=== PATIENT | female | born 1995 | race Caucasian/White ===

== ENCOUNTER → 2018-09-17 | Outpatient (CLI) | payer BC ==
--- NOTE | 2018-09-17 14:37 | WOMENS IMAGING REPORT ---
EXAM DESCRIPTION: U/S BREAST UNILAT LIMITED COMPLETED DATE/TIME: 09/17/2018 11:00 am REASON FOR STUDY: RT BREAST LUMP N63.14 N63.14 UNSPECIFIED LUMP IN THE RIGHT BREAST, LOWER INNER QU A COMPARISON: None. TECHNIQUE: Real-time and static grayscale imaging performed of the right breast targeted to the area of clinical concern. Selected color Doppler images recorded. LIMITATIONS: None. FINDINGS: MASS: No mass identified. Normal glandular tissue. OTHER: In the right breast medial 3 to 4 o'clock position, in the area of palpable abnormality, there is a well-circumscribed anechoic cyst with septation, 1.3 by 1.4 x 0.7 cm in size. This is a benign finding. Clinical follow-up recommended IMPRESSION: Palpable abnormality medial lateral breast correlates with a breast parenchymal cyst wit h septation. Clinical follow-up recommended. BIRAD: 2 Benign findings. RECOMMENDATION: RECOMMENDED FOLLOW-UP: Follow-up as clinically indicated. COMMENT: The [employer] ([employer]) has developed recommendations for screening MRI of the breasts in certain patient populations, to be used in conjunction with mammography. Breast MRI s urveillance may be appropriate for women with more than 20% lifetime risk of developing breast cancer as determined by genetic testing, significant family history of the disease, or history of mantle r adiation for Hodgkins Disease. [employer] Practice Guidelines 2008. TECHNICAL DOCUMENTATION: JOB ID: [id number] 1951 [employer]- All Rights Reserved Reading location - IP/workstation name: [email or web address]
== END ==
LOC: WI 10:27
PROVIDERS: ATTEND Internal Medicine Geriatric Medicine
DX: N63.14 Unspecified lump in the right breast, lower inner quadrant (principal)
CPT/HCPCS: 76642

== ENCOUNTER 2020-07-11 08:06 | Inpatient (IN) | payer BC, MEDICAID ==
[2020-07-11 09:25] LABS: APPEARANCE,URINE CLEAR; BILIRUBIN,URINE NEGATIVE (NEGATIVE); COLOR,URINE YELLOW; GLUCOSE, URINE NEGATIVE (NEGATIVE); KETONES,URINE NEGATIVE (NEGATIVE); LEUKOCYTE ESTERASE,URINE TRACE (NEGATIVE); NITRITE,URINE NEGATIVE (NEGATIVE); PROTEIN,URINE 30 mg/dL (NEGATIVE); URINE SPECIFIC GRAVITY 1.011; UROBILINOGEN,URINE NEGATIVE mg/dL (<2.0)
[2020-07-11 09:45] LABS: URINE AMPHETAMINES SCREEN NEGATIVE; URINE BARBITURATES SCREEN NEGATIVE; URINE BENZODIAZEPINES SCREEN NEGATIVE; URINE COCAINE SCREEN NEGATIVE; URINE MARIJUANA (THC) SCREEN NEGATIVE; URINE METHADONE SCREEN NEGATIVE; URINE PHENCYCLIDINE SCREEN NEGATIVE
[2020-07-11] MEDS ORDERED: RINGERS SOLUTION,LACTATED 1,000 ML IV PRN (12:04)
[2020-07-11] MEDS ORDERED: RINGERS SOLUTION,LACTATED 500 ML IV ONE (12:04)
--- NOTE | 2020-07-11 12:19 | Admission Physical ---
Datetime Report Generated by CPN: 07/11/2020 12:18 CURRENT ADMISSION Chief Complaint: Uterine Contractions Admit Impression : Term, Intrauterine ; Active Labor Admit Plan: Admit to Unit ALLERGIES Medication Allergies: Yes Medication Allergies: promethazine HCl/SV/n/v (08/04/2014); meperidine HCl/SV/n/v (08/04/2014); hydromorphone HCl/SV/n/v (07/11/2020); morphine/SV/n/v (08/04/2014); latex/MO/rash (08/04/2014) Latex: Latex Allergies OBSTETRICAL HISTORY EDC: 07/09/2020 00:00 : 1 Para: 0 Term: 0 : 0 SAB: 0 IAB: 0 Ectopic: 0 Livin Cesareans: 0 VBACs: 0 Multiple Births: 0 Gestational Diabetes: No Rh Sensitization: No Incompetent Cervix: No JOHNSON: No Infertility: No ART Treatment: No Uterine Anomaly: No IUGR: No Hx Previous C/S: No Macrosomia: No Hx Loss/Stillborn: No PIH: No Hx : No Placenta Previa/Abruption: No Depression/PP Depression: No PTL/PROM: No Post Hemorrhage: No Current Procedures: Ultrasound Obstetrical History Comments: G1-current SEE RECORDS Alcohol: No Marijuana : No Cocaine: No Other Illicit Drugs: No Cigarettes: Current Some Day Smoker. [id number] Cigarette Frequency: 5 - 10 per day MEDICAL HISTORY Diabetes: No Blood Transfusion: No Pulmonary Disease (Asthma, TB): No Breast Disease: No Hypertension: No Grades 9 12 Tutor Surgery: No Heart Disease: No Hosp/Surgery: Yes Autoimmune Disorder: No Anesthetic Complications: No Kidney Disease: No Abnormal Pap Smear: No Neuro/Epilepsy: No Psychiatric Disorders: No Other Medical Diseases: No Hepatitis/Liver Disease: No Significant Family History: No Varicosities/Phlebitis: No Trauma/Violence : No Thyroid Dysfunction: No Medical History Comments: Appendectomy/Hernia repair 2008 INFECTIOUS HISTORY Gonorrhea: No Chlamydia: No Syphilis: No HIV/AIDS Exposure: No PHYSICAL EXAM General: Normal HEENT: Normal Neurologic: Normal Thyroid: Normal Heart: Normal Lungs: Normal Breast: Normal Back: Normal Abdomen: Normal Genitourinary Exam: Normal Extremities: Normal DTRs: Normal Pelvic Type: Adequate Vital Signs: Reviewed MEMBRANES Membranes: Intact FETUS A EGA: 40.2 Monitoring: External US FHR- Baseline: 140 Variability: Moderate 6-25bpm Accelerations: 15X15 Decelerations: None FHR Category: Category I Admit Comment: at 40.2 wks, change her cervix after walking for a few hours. VE 4/90/0 per the RN exam. Pt desires an epidural. GBS negative. Pt is Rh negative. Plan to admit, then will AROM after pt gets an epidural. EFW 8 lbs. Attending MD is Dr Street PLANS FOR LABOR AND DELIVERY Labor and Delivery: Plan Pain Management: Epidural Feeding Preference: Breast Benefit of Breast Feed Discussed: Yes Circumcision: N/A INFORMED CONSENT Assignment: Irene Street MD Signature: with User ID: Kenya : with User ID: Kenya
[2020-07-11 12:42] LABS: HEMATOCRIT 33.1 % (36.0-47.0); HEMOGLOBIN 11.6 g/dL (12.0-15.5); MEAN CORPUSCULAR HEMOGLOBIN 32.2 pg (27.0-33.4); MEAN CORPUSCULAR HGB CONC 35.1 g/dL (32.0-36.0); MEAN CORPUSCULAR VOLUME 92 fl (80-97); PLATELET COUNT 158 10^3/uL (150-450); RED BLOOD COUNT 3.61 10^6/uL (3.72-5.28); WHITE BLOOD COUNT 16.4 10^3/uL (4.0-10.5)
[2020-07-11] MEDS ORDERED: OXYTOCIN 10 UNIT/ML VIAL ONE (12:45)
[2020-07-11] MEDS ORDERED: FENTANYL/BUPIVACAINE/NS/PF 300 MCG/150 ML RTUINJ EPI ONE (12:46)
[2020-07-11] MEDS ORDERED: LIDOCAINE 1% INJ-PF (10 MG/ML) 30 ML SDV ONE (12:46)
[2020-07-11] MEDS ORDERED: EPHEDRINE SULFATE INJ 50 MG/1 ML AMPULE ONE (12:46)
[2020-07-11] MEDS ORDERED: MISOPROSTOL 0.2 MG TABLET ONE (12:46)
[2020-07-11] MEDS ORDERED: OXYTOCIN/0.9 % SODIUM CHLORIDE 30 UNIT/500 ML RTUINJ ONE (12:46)
[2020-07-11] MEDS ORDERED: ROPIVACAINE HCL 0.2% INJ/PF (2 MG/ML) 20 ML SDV ONE (12:47)
[2020-07-11 13:27] LABS: ABSOLUTE LYMPHOCYTES# (MANUAL) 0.8 10^3/uL (0.5-4.7); BASOPHILS % (MANUAL) 0 % (0-2); EOSINOPHILS % (MANUAL) 0 % (0-6); LYMPHOCYTES % (MANUAL) 3 % (13-45); MONOCYTES % (MANUAL) 0 % (3-13); PLATELET COMMENT ADEQUATE; RBC MORPHOLOGY COMMENT NORMO-CYTIC/CHROMIC; SEGMENTED NEUTROPHILS % (MAN) 95 % (42-78); TOTAL CELLS COUNTED 100
--- NOTE | 2020-07-11 15:49 | L&D Progress Notes ---
PROGRESS NOTES Datetime Report Generated by CPN: 07/11/2020 15:49 PROGRESS NOTE Impression: Normal Progression of Labor Procedures: Artificial ROM; Sterile Vag Exam Plan: Continue Present Management; Anticipate Vaginal Delivery Vital Signs : Reviewed Comment: Epidural in place, pt feeling pressure, VE rim/100/0. AROM w/ clear fluid noted. Position changes encouraged. Anticipate VAGINAL EXAM Dilatation: rim Effacement: 100 Station: 0 Contractions: q1-2 LAST VAGINAL EXAM-NURSING Nursing Exam Dilitation: 6-7 Nursing Exam Effacement: 90 Nursing Exam Station: 0 MEMBRANES Membranes: Ruptured Amniotic Fluid Color: Clear FETUS A FHR - Baseline: 140 Monitoring: External US Variability: Moderate 6-25bpm Accelerations: 15X15 Decelerations: None SIGNATURE SIGNATURE: [id number];[id number] Assignment: Irene Srteet MD Signature: with User ID: Kenya : with User ID: Kenya
[2020-07-11] MEDS ORDERED: ACETAMINOPHEN WITH CODEINE #3 TABLET PO PRN ×2 (19:40)
[2020-07-11] MEDS ORDERED: ACETAMINOPHEN 325 MG TABLET PO PRN (19:40)
[2020-07-11] MEDS ORDERED: FAMOTIDINE 20 MG TABLET PO PRN (19:40)
[2020-07-11] MEDS ORDERED: ACETAMINOPHEN 650 MG SUPP.RECT PR PRN (19:40)
[2020-07-11] MEDS ORDERED: MAGNESIUM HYDROXIDE SUSP 30 ML UDCUP PO PRN (19:40)
[2020-07-11] MEDS ORDERED: VARICELLA VACC/PF (1350 UNIT/0.5 ML) 0.5 ML VIAL SUBCUT PRN (19:40)
[2020-07-11] MEDS ORDERED: DIPHENHYDRAMINE HCL 25 MG CAPSULE PO PRN (19:40)
[2020-07-11] MEDS ORDERED: MAG HYDROX/AL HYDROX/SIMETH SUSP 30 ML UDCUP PO PRN (19:40)
[2020-07-11] MEDS ORDERED: GLYCERIN/WITCH HAZEL LEAF 1 EACH MED..WIPE TP PRN (19:40)
[2020-07-11] MEDS ORDERED: ZOLPIDEM TARTRATE 5 MG TABLET PO PRN (19:40)
[2020-07-11] MEDS ORDERED: PSEUDOEPHEDRINE HCL 30 MG TABLET PO PRN (19:40)
[2020-07-11] MEDS ORDERED: OXYTOCIN/0.9 % SODIUM CHLORIDE 30 UNIT/500 ML RTUINJ IV PRN (19:40)
[2020-07-11] MEDS ORDERED: MEASLES,MUMPS&RUBELLA VACC/PF 0.5 ML VIAL SUBCUT PRN (19:40)
[2020-07-11] MEDS ORDERED: BENZOCAINE/MENTHOL AEROSOL SPRAY 56 ML TOP PRN (19:40)
[2020-07-11] MEDS ORDERED: DIPH/PERTUSS(ACELL)/TETANUS VAC/PF 0.5 ML SYR (>=10YO) IM PRN (19:40)
[2020-07-11] MEDS ORDERED: DIBUCAINE 1% OINTMENT 28 GM TP PRN (19:40)
[2020-07-11] MEDS ORDERED: ACETAMINOPHEN WITH CODEINE #3 TABLET ONE (19:42)
--- NOTE | 2020-07-11 21:10 | Delivery Summary ---
Del Sum A-C Datetime Report Generated by CPN: 07/11/2020 21:10 DELIVERY PERSONNEL DELIVERY PERSONNEL: [id number] Delivery Doctor:: Irene Street MD Labor and Delivery Nurse:: Nallely Fagan RNoverhead cleaner Nurse:: Sabine Avelar RN Roll Carrier/TRIM MECHANIC: Dilia Green, ST MATERNAL INFORMATION Delivery Anesthesia: Epidural Medications After Delivery: Pitocin 30 Units in 500ml NS/D5W Estimated Blood Loss (ml): 300 Delivery QBL: 300 Maternal Complications: None LABOR SUMMARY EDC: 07/09/2020 00:00 No. Babies in Womb: 1 Attempted: No Labor Anesthesia: Epidural LABOR INFORMATION Reason for Induction: Not Applicable Onset of Labor: 07/11/2020 13:59 Complete Dilatation: 07/11/2020 16:38 Oxytocin: N/A Group B Beta Strep: Negative Antibiotics # of Doses: 0 Name of Antibiotic Given: n/a Steroids Given: None Reason Steroids Not Administered: Not Applicable MEMBRANES Membranes Rupture Method: Artificial Rupture of Membranes: 07/11/2020 15:53 Length of Rupture (hr): 3.50 Amniotic Fluid Color: Clear Amniotic Fluid Amount: Small Amniotic Fluid Odor: Normal STAGES OF LABOR Stage 1 hr: 2 Stage 1 min: 39 Stage 2 hr: 2 Stage 2 min: 45 Stage 3 hr: 0 Stage 3 min: 4 Total Time in Labor hr: 5 Total Time in Labor min: 28 VAGINAL DELIVERY Episiotomy: None Laceration #1: Perineal Laceration Extension #1: Second Degree Laceration Repair: Yes Laceration Repair Note: 3-0 vicryl repair. normal fashion Sponge Count Correct: Yes Sharps Count Correct: Yes CSECTION DELIVERY Primary Indication: N/A Secondary Indication: N/A CSection Incidence: N/A Labor: N/A Elective: N/A CSection Incision: N/A BABY A INFORMATION Delivery Date/Time: 07/11/2020 19:23 Method of Delivery: Vaginal Nurse Controlled Delivery: No Born in Route : No : N/A Forceps: N/A Vacuum Extraction: N/A Shoulder Dystocia : Yes SHOULDER DYSTOCIA BABY A Delivery of Head: 07/11/2020 19:23 Time Head to Delivery : 0.0 1st Intervention to Resolve: McRobert's Maneuver 2nd Intervention to Resolve: Suprapubic Pressure PRESENTATION/POSITION BABY A Presentation: Cephalic Cephalic Presentation: Vertex Vertex Position: Left Occipital Anterior Breech Presentation: N/A PLACENTA INFORMATION BABY A Placenta Delivery Time : 07/11/2020 19:27 Placenta Method of Delivery: Spontaneous Placenta Status: Delivered SCORES BABY A Heart Rate 1 min: >100 bpm Resp Effort 1 min: Good Cry Reflex Irritability 1 min: Cough or Sneeze or Pulls Away Muscle Tone 1 min: Active Motion Color 1 min: Blue/Pale Resuscitation Effort 1 min: Tactile Stimulation SCORE 1 MIN: 8 Heart Rate 5 min: >100 bpm Resp Effort 5 min: Good Cry Reflex Irritability 5 min: Cough or Sneeze or Pulls Away Muscle Tone 5 min: Active Motion Color 5 min: Body [place], Extremities Blue Resuscitation Effort 5 min: Tactile Stimulation SCORE 5 MIN: 9 INFORMATION BABY A Gestational Age at Delivery: 40.2 Gestational Status: Full Term- 39- 40.6 Weeks Outcome : Liveborn Infant Condition : Stable Sex: Female IDENTIFICATION BABY A Verification Date/Time: 07/11/2020 19:43 ID Band Number: [id number] Mother's Name Verified: Yes RN Verifying Infant: K Valentino RN/D [place] RN WEIGHT/LENGTH BABY A Birthweight (gm): 3800 Infant Weight (lb): 8 Weight (oz): 6 Length (in): 20.00 Length (cm): 50.80 CORD INFORMATION BABY A No. Cord Vessels: 3 Nuchal Cord : N/A Cord Blood Taken: Yes-For Eval (Mom's Blood Type - or O+) Infant Suction: Mouth; Nose ASSESSMENT BABY A Infant Complications: None Physical Findings at Delivery: Within Normal Limits Infant Respirations: Appears Normal; Grunting Skin to Skin: Yes Skin to Skin Time (min): 60 Hardwood Flooring Specialist/ALS Called : No Care By: Shari Avelar RN Transferred To: Remains with Mother BABY B INFORMATION : N/A SIGNATURES Signature: with User ID: Rickey
--- NOTE | 2020-07-11 21:11 | Birth Certificate Data ---
Cert Data Datetime Report Generated by CPN: 07/11/2020 21:10 CERTIFICATE DATA Delivery Provider: Irene Street MD (07/11/2020 08:16:Irene Street MD ([facility])) 47a. Care: Yes (07/11/2020 08:16:Graciela Parada RN) 47b. Date of First Visit: 12/23/2019 00:00 (07/11/2020 08:16:Graciela Parada RN) 47c. Date of Last Visit: 07/10/2020 00:00 (07/11/2020 08:16:Graciela Parada RN) 47d. Number of Visits: 13 (07/11/2020 08:16:Graciela Parada RN) 48a. Number of Prev Live Births: 0 (07/11/2020 08:16:Graciela Parada RN) 48b. Now Livin (07/11/2020 08:16:Graciela Parada RN) 48c. Live Births Now : 0 (07/11/2020 08:16:QS system process) 48e. Losses: 0 (07/11/2020 08:16:Graciela Parada RN) RISK FACTORS IN THIS 49a. Diabetes: No (07/11/2020 08:16:Nallely Fagan RN) 49b. Hypertension: No (07/11/2020 08:16:Nallely Fagan RN) 49c. Previous Births: 0 (07/11/2020 08:16:Graciela Parada RN) 49d. Stillborns: No (07/11/2020 08:16:Nallely Fagan RN) 49d. IUGR: No (07/11/2020 08:16:Nallely Fagan RN) 49e. Infertility Treatment: No (07/11/2020 08:16:Nallely Fagan RN) 49f. Previous Cesareans: 0 (07/11/2020 08:16:Graciela Parada RN) Mother's Height 50b. Height Inches: 68 (07/11/2020 12:04:QS system process) Mother's Weight 51a. Pre- Weight (lbs): 128 (07/11/2020 08:16:Graciela Parada RN) 51b. Weight at Delivery (lbs): 174 (07/11/2020 08:16:QS system process) 52. Dt Last Normal Menses Began: 09/14/2019 00:00 (07/11/2020 08:16:Graciela Parada RN) Infections Present/Treated 53a. Gonorrhea: No (07/11/2020 08:16:Nallely Fagan RN) Results this Hospital Visit : Negative (07/11/2020 08:16:Graciela Parada RN) 53b. Syphilis: No (07/11/2020 08:16:Nallely Fagan RN) 53c. Chlamydia: No (07/11/2020 08:16:Nallely Fagan RN) Results this Hospital Visit: Negative (07/11/2020 08:16:Graciela Parada RN) 53d. Hepatitis B: No (07/11/2020 08:16:Nallely Fagan RN) Results this Hospital Visit: Negative (07/11/2020 08:16:Graicela Parada RN) 53e. Hepatitis C: Negative (07/11/2020 08:16:Graciela Parada RN) 53h. Mother Tested for HBsAG: Yes (07/11/2020 08:16:Graciela Parada RN) 53i. Date Tested: 12/23/2019 00:00 (07/11/2020 08:16:Graciela Parada RN) 53j. Test Result: Negative (07/11/2020 08:16:Graciela Parada RN) Obstetric Procedures 54a, b, c. Obstetric Procedures: Ultrasound (07/11/2020 08:16:Nallely Fagan RN) Cigarette Smoking Cigarette Smoking: Current Some Day Smoker. [id number] (07/11/2020 08:16:Nallely Fagan RN) Onset of Labor 56a. PROM >12 Hrs: 3.50 (07/11/2020 08:16:QS system process) 56b. Precipitous Labor <3 Hrs: 5 (07/11/2020 08:16:QS system process) 56c. Prolonged Labor > 20 Hrs: 5 (07/11/2020 08:16:QS system process) 57a. Induction of Labor: N/A (07/11/2020 08:16:Sabine Avelar RN) 57c. Non-Vertex Presentation A: Vertex (07/11/2020 08:16:WILDER Perkins) 57d. Steroids - Lung Mat: None (07/11/2020 08:16:Nallely Fagan RN) 57d. Steroids - Lung Mat: Not Applicable (07/11/2020 08:16:Nallely Fagan RN) 57f. Mat [place] or Temp >100.4: 98.2 (07/11/2020 08:16:WILDER Perkins) 57g. Moderate/Heavy Meconium: Clear (07/11/2020 15:43:Nallely Fagan RN) 57h. Intolerance of Labor: N/A (07/11/2020 08:16:WILDER Perkins) : N/A (07/11/2020 08:16:Sabine Avelar RN) 57i. Epidural/Spinal Anesthesia: Epidural (07/11/2020 08:16:Nallely Fagan RN) Method of Delivery 58a. Forceps - Unsuccessful A: N/A (07/11/2020 08:16:WILDER Perkins) 58b. Vacuum - Unsuccessful A: N/A (07/11/2020 08:16:WILDER Perkins) 58c. Presentation at 58c. Presentation at - A : Vertex (07/11/2020 08:16:WILDER Perkins) 58c. Presentation at - A : N/A (07/11/2020 08:16:WILDER Perkins) 58c. Presentation at - A : Cephalic (07/11/2020 08:16:Cami Lora [facility]) Final Route and Method of Del 58d. Baby A Route/Delivery: Vaginal (07/11/2020 19:23:Sabine Avelar RN) 58e. Trial of Labor Attempted: No (07/11/2020 08:16:Nallely Fagan RN) 58e. Trial of Labor Attempted A: N/A (07/11/2020 08:16:Nallely Fagan RN) 58e. Trial of Labor Attempted B: N/A (07/11/2020 08:16:Nallely Fagan RN) Maternal Morbidity 59b. 3rd or 4th Degree Lacs: Perineal (07/11/2020 08:16:Irene Street MD ([facility])) 59b. 3rd or 4th Degree Lacs: Second Degree (07/11/2020 08:16:Sabine Avelar RN) Birthweight Baby A: 3800 (07/11/2020 08:16:Melsylvie Askew RN) 60a. Pounds : 8 (07/11/2020 08:16:QS system process) 60b. Ounces: 6 (07/11/2020 08:16:QS system process) 61. GA at Delivery Baby A: 40.2 (07/11/2020 08:16:Cami Guido, [facility]) : Full Term- 39- 40.6 Weeks (07/11/2020 08:16:QS system process) 62a. 5 Minute Baby A: 9 (07/11/2020 08:16:QS system process)
[2020-07-11] MEDS: IBUPROFEN 800 MG TABLET PO SCH (22:23)
[2020-07-12] MEDS: IBUPROFEN 800 MG TABLET PO SCH ×3 (05:27→21:29)
[2020-07-12 07:32] LABS: HEMATOCRIT 27.3 % (36.0-47.0); HEMOGLOBIN 9.7 g/dL (12.0-15.5); MEAN CORPUSCULAR HEMOGLOBIN 32.7 pg (27.0-33.4); MEAN CORPUSCULAR HGB CONC 35.6 g/dL (32.0-36.0); MEAN CORPUSCULAR VOLUME 92 fl (80-97); PLATELET COUNT 147 10^3/uL (150-450); RED BLOOD COUNT 2.98 10^6/uL (3.72-5.28); RED CELL DISTRIBUTION WIDTH 13.1 % (11.5-14.0)
--- NOTE | 2020-07-12 10:59 | PDOC PROGRESS REPORT ---
Subjective-OB Progress Note for:: 07/12/20 Subjective: Pt doing well, no concerns. She reports light bleeding, reg diet and voiding w/o difficulty. Physical Exam (OB) Vital Signs: Temp Pulse Resp BP Pulse Ox 97.9 F 78 16 106/62 100 07/12/20 07:53 07/12/20 07:53 07/12/20 07:53 07/12/20 07:53 07/12/20 07:53 Intake & Output 07/11/20 07/12/20 07/13/20 06:59 06:59 06:59 Intake Total 300 Balance 300 Weight 79 kg - PIH/Pre-Eclampsia Clonus: Negative Headache: Absent Epigastric Pain: No Visual Changes: No - Maternal Morbidity 59. Maternal Morbidity (serious complications experinced by the mother associated with labor and delivery: None of the above - Lochia Lochia Amount: Small 10-25 ml Lochia Color: Rubra/Red - Abdomen Description: Soft, Round Fundal Description: Firm, Midline Fundal Height: u/u - u/2 Objective-Diagnostic Laboratory: 07/12/20 06:28 07/11/20 07/11/20 07/12/20 12:24 12:24 06:28 WBC 16.4 H 17.0 H RBC 3.61 L 2.98 L Hgb 11.6 L 9.7 L Hct 33.1 L 27.3 L MCV 92 92 MCH 32.2 32.7 MCHC 35.1 35.6 RDW 13.0 13.1 Plt Count 158 147 L Seg Neutrophils % Not Reportable Blood Type A NEGATIVE Antibody Screen POSITIVE 07/12/20 06:28 WBC RBC Hgb Hct MCV MCH MCHC RDW Plt Count Seg Neutrophils % Blood Type A NEGATIVE Antibody Screen Assessment and Plan(PN) - Assessment and Plan (1) Active labor at term Is this a current diagnosis for this admission?: Yes (2) Obstetrical laceration, second degree Is this a current diagnosis for this admission?: Yes (3) Shoulder dystocia, delivered Is this a current diagnosis for this admission?: Yes (4) Vaginal delivery Is this a current diagnosis for this admission?: Yes - Time Spent with Patient Time with patient: Less than 15 minutes Medications reviewed and adjusted accordingly: Yes - Disposition Anticipated Discharge Disposition: Home, Self Care Anticipated Discharge Timeframe: within 24 hours
[2020-07-12] MEDS: DOCUSATE SODIUM 100 MG CAPSULE PO SCH ×2 (11:03→18:52)
[2020-07-12] MEDS: SENNOSIDES/DOCUSATE 8.6-50 MG 1 EACH TABLET PO SCH (11:03)
[2020-07-12] MEDS: FERROUS SULFATE 325 MG TABLET PO SCH ×2 (11:03→18:52)
[2020-07-12] MEDS: PRENATAL VITAMIN W DHA CAPSULE PO SCH (15:18)
[2020-07-13] MEDS: IBUPROFEN 800 MG TABLET PO SCH (05:56)
[2020-07-13 06:59] LABS: ABSOLUTE BASOPHILS # (AUTO) 0.1 10^3/uL (0.0-0.2); ABSOLUTE EOSINOPHILS # (AUTO) 0.2 10^3/uL (0.0-0.6); ABSOLUTE LYMPHOCYTES (AUTO) 2.5 10^3/uL (0.5-4.7); ABSOLUTE MONOCYTES (AUTO) 0.7 10^3/uL (0.1-1.4); ABSOLUTE NEUT (AUTO) 10.3 10^3/uL (1.7-8.2); BASOPHILS % (AUTO) 0.4 % (0-2); EOSINOPHILS % (AUTO) 1.2 % (0-6); HEMATOCRIT 30.4 % (36.0-47.0); HEMOGLOBIN 10.6 g/dL (12.0-15.5); LYMPHOCYTES % (AUTO) 18.2 % (13-45); MEAN CORPUSCULAR HEMOGLOBIN 32.3 pg (27.0-33.4); MEAN CORPUSCULAR VOLUME 93 fl (80-97); MONOCYTES % (AUTO) 5.2 % (3-13); PLATELET COUNT 158 10^3/uL (150-450); RED BLOOD COUNT 3.29 10^6/uL (3.72-5.28); RED CELL DISTRIBUTION WIDTH 13.3 % (11.5-14.0); TOTAL CELLS COUNTED % (AUTO) 100 %; WHITE BLOOD COUNT 13.8 10^3/uL (4.0-10.5)
[2020-07-13 08:25] VITALS: BP 100/51
[2020-07-13] MEDS: FERROUS SULFATE 325 MG TABLET PO SCH (10:12)
[2020-07-13] MEDS: SENNOSIDES/DOCUSATE 8.6-50 MG 1 EACH TABLET PO SCH (10:13)
[2020-07-13] MEDS: DOCUSATE SODIUM 100 MG CAPSULE PO SCH (10:13)
--- NOTE | 2020-07-13 10:32 | PDOC DISCHARGE SUMMARY ---
Impression - Admit/DC Date/PCP Admission Date/Primary Care Provider: 07/11/20 11:58 ALEXY HESTER MD Discharge Date: 07/13/20 - Discharge Diagnosis (1) Active labor at term Is this a current diagnosis for this admission?: Yes (2) Obstetrical laceration, second degree Is this a current diagnosis for this admission?: Yes (3) Shoulder dystocia, delivered Is this a current diagnosis for this admission?: Yes (4) Vaginal delivery Is this a current diagnosis for this admission?: Yes - Additional Information Discharge Diet: Regular Discharge Activity: Balance Activity w/Rest, Pelvic Rest Referrals: ALEXY HESTER MD [Primary Care Provider] - Prescriptions: Ibuprofen [Motrin 800 mg Tablet] 800 mg PO Q8HP PRN #60 tablet PRN Reason: Home Medications: Pnv 102/Iron/Folate 1/Dss/Dha [Vitafol Fe+ Docusate Combo Pck] 1 each PO DAILY 07/11/20 Ibuprofen [Motrin 800 mg Tablet] 800 mg PO Q8HP PRN #60 tablet 07/13/20 Hospital Course 59. Maternal Morbidity (serious complications experinced by the mother associated with labor and delivery: None of the above Results Laboratory Results: WBC 13.8 10^3/uL (4.0-10.5) H 07/13/20 06:19 RBC 3.29 10^6/uL (3.72-5.28) L 07/13/20 06:19 Hgb 10.6 g/dL (12.0-15.5) L 07/13/20 06:19 Hct 30.4 % (36.0-47.0) L 07/13/20 06:19 MCV 93 fl (80-97) 07/13/20 06:19 MCH 32.3 pg (27.0-33.4) 07/13/20 06:19 MCHC 35.0 g/dL (32.0-36.0) 07/13/20 06:19 RDW 13.3 % (11.5-14.0) 07/13/20 06:19 Plt Count 158 10^3/uL (150-450) 07/13/20 06:19 Lymph % (Auto) 18.2 % (13-45) 07/13/20 06:19 [place] % (Auto) 5.2 % (3-13) 07/13/20 06:19 Eos % (Auto) 1.2 % (0-6) 07/13/20 06:19 Baso % (Auto) 0.4 % (0-2) 07/13/20 06:19 Absolute Neuts (auto) 10.3 10^3/uL (1.7-8.2) H 07/13/20 06:19 Absolute Lymphs (auto) 2.5 10^3/uL (0.5-4.7) 07/13/20 06:19 Absolute Monos (auto) 0.7 10^3/uL (0.1-1.4) 07/13/20 06:19 Absolute Eos (auto) 0.2 10^3/uL (0.0-0.6) 07/13/20 06:19 Absolute Basos (auto) 0.1 10^3/uL (0.0-0.2) 07/13/20 06:19 Total Counted 100 07/11/20 12:24 Seg Neutrophils % 75.0 % (42-78) 07/13/20 06:19 Seg Neuts % (Manual) 95 % (42-78) H 07/11/20 12:24 Lymphocytes % (Manual) 3 % (13-45) L 07/11/20 12:24 Atypical Lymphs % 2 % (0) 07/11/20 12:24 Monocytes % (Manual) 0 % (3-13) L 07/11/20 12:24 Eosinophils % (Manual) 0 % (0-6) 07/11/20 12:24 Basophils % (Manual) 0 % (0-2) 07/11/20 12:24 Abs Neuts (Manual) 15.6 10^3/uL (1.7-8.2) H 07/11/20 12:24 Abs Lymphs (Manual) 0.8 10^3/uL (0.5-4.7) 07/11/20 12:24 Abs Monocytes (Manual) 0.0 10^3/uL (0.1-1.4) L 07/11/20 12:24 Absolute Eos (Manual) 0.0 10^3/uL (0.0-0.6) 07/11/20 12:24 Abs Basophils (Manual) 0.0 10^3/uL (0.0-0.2) 07/11/20 12:24 Platelet Comment ADEQUATE 07/11/20 12:24 RBC Morph Comment NORMO-CYTIC/CHROMIC 07/11/20 12:24 Urine Color YELLOW 07/11/20 08:53 Urine Appearance CLEAR 07/11/20 08:53 Urine pH 6.0 (5.0-9.0) 07/11/20 08:53 Ur Specific Rison 1.011 07/11/20 08:53 Urine Protein 30 mg/dL (NEGATIVE) H 07/11/20 08:53 Urine Glucose (UA) NEGATIVE mg/dL (NEGATIVE) 07/11/20 08:53 Urine Ketones NEGATIVE mg/dL (NEGATIVE) 07/11/20 08:53 Urine Blood NEGATIVE (NEGATIVE) 07/11/20 08:53 Urine Nitrite NEGATIVE (NEGATIVE) 07/11/20 08:53 Urine Bilirubin NEGATIVE (NEGATIVE) 07/11/20 08:53 Urine Urobilinogen NEGATIVE mg/dL (<2.0) 07/11/20 08:53 Ur Leukocyte Esterase TRACE (NEGATIVE) H 07/11/20 08:53 Urine Ascorbic Acid NEGATIVE (NEGATIVE) 07/11/20 08:53 Urine Opiates Screen NEGATIVE 07/11/20 08:53 Urine Methadone Screen NEGATIVE 07/11/20 08:53 Ur Barbiturates Screen NEGATIVE 07/11/20 08:53 Ur Phencyclidine Scrn NEGATIVE 07/11/20 08:53 Ur Amphetamines Screen NEGATIVE 07/11/20 08:53 U Benzodiazepines Scrn NEGATIVE 07/11/20 08:53 Urine Cocaine Screen NEGATIVE 07/11/20 08:53 U Marijuana (THC) Screen NEGATIVE 07/11/20 08:53 RPR NONREACTIVE (NONREACTIVE) 07/11/20 12:24 Blood Type A NEGATIVE 07/12/20 06:28 Antibody Screen POSITIVE 07/11/20 12:24 Antibody Identification RHOGAM INDUCED ANTI-D 07/11/20 12:24 Screen NEGATIVE 07/12/20 06:28 Plan Plan of Treatment: follow up in 4 weeks at [facility] for post check
[2020-07-13] MEDS: PRENATAL VITAMIN W DHA CAPSULE PO SCH (10:34)
== END 2020-07-13 13:41 | disposition home or self-care (01) | DRG 807 ==
LOC: LC 08:06 → LR 11:58 → 2S 21:26
PROVIDERS: ADMIT Obstetrics & Gynecology; ATTEND Obstetrics & Gynecology
PROC: 10E0XZZ Delivery of Products of Conception, External Approach (ICD-10-PCS; principal; 2020-07-11)
PROC: 0KQM0ZZ Repair Perineum Muscle, Open Approach (ICD-10-PCS; 2020-07-11)
PROC: 3E0234Z Introduction of Serum, Toxoid and Vaccine into Muscle, Percutaneous Approach (ICD-10-PCS; 2020-07-12)
DX: O26.893 Other specified pregnancy related conditions, third trimester (principal); Z37.0 Single live birth; O99.334 Smoking (tobacco) complicating childbirth; F17.210 Nicotine dependence, cigarettes, uncomplicated; O70.1 Second degree perineal laceration during delivery; O66.0 Obstructed labor due to shoulder dystocia; Z67.11 Type A blood, Rh negative; Z3A.40 40 weeks gestation of pregnancy
CPT/HCPCS: 1967; 36415; 80307; 81005; 85025; 85027; 85461; 86592; 86850; 86870; 86900; 86901; J2590; J2790; J2795; J3010; J3490